=== PATIENT | female | born 1995 | race Caucasian/White ===

== ENCOUNTER 2023-05-21 06:35 | Emergency (ER) | payer BC, SELFPAY ==
[2023-05-21 06:45] VITALS: BP 119/73; PULSE 102; RESP 16; TEMP 36.3; O2SAT 100; BMI 22.6
--- NOTE | 2023-05-21 06:56 | ED.GENADULT ---
HPI - General Adult General Chief complaint: Nausea/Vomiting Stated complaint: flu symptoms Time Seen by Provider: 05/21/23 06:55 History of Present Illness HPI narrative: nausea, vomiting, diarrhea since yesterday. took one Zofran at home, did not help. not able to keep fluids down. 28-year-old young woman presenting to the emergency department complaint of vomiting and not being able to keep anything down. This started yesterday. Had a Zofran at home but ended up vomiting that up to. Just a yellowish green vomitus anymore. Has felt chilled and diaphoretic but usually this is preceding episode of vomiting. Does have some abdominal pain also preceding vomiting or diarrhea and then settles. No hematochezia no hematemesis no melena noted. No rashes. No noted exposures. Says she gets something like this usually once a year. No dysuria or for frequency or urgency in fact less urine out. She is terribly thirsty. Did try drinking water which came right back up as well as some Sprite. Related Data Home Medications Medication Instructions Recorded Confirmed lorazepam 0.5 mg tablet 0.5 mg PO Q6H PRN vertigo 05/21/23 05/21/23 ondansetron 4 mg disintegrating 4 mg PO Q8H PRN nausea/vomiting 05/21/23 05/21/23 tablet Allergies Allergy/AdvReac Type Severity Reaction Status Date / Time nitrofurantoin Allergy Intermediate Verified 05/21/23 06:49 [From Macrobid] Penicillins Allergy Intermediate Verified 05/21/23 06:49 Review of Systems Status of ROS: Reports: 6 or more systems reviewed and unremarkable except as noted in History and below [facility] Social History Smoking Status: Never smoker How often do you have a drink containing alcohol: never AUDIT-C Alcohol total score: 0 Non-prescribed substance use: denies use Exam Narrative: Exam Narrative: Pleasant. Seems uncomfortable. Holding an emesis bag. Sounds a little congested the nasopharynx not inconsistent with vomiting. Oropharynx is moist without erythema. Neck looks to be supple. Lungs are clear. Heart is in an elevated rate and regular rhythm. Abdomen is soft and diffusely mildly tender. Extremities are well perfused without edema. Skin is warm and dry no rash apparent. Face looks flushed. Const: Vital Signs, click to edit/add: Vital Signs - 24 hr 05/21/23 06:45 Temperature 97.4 F L Pulse Rate [Left P ulse Oximeter] 102 H Respiratory Rate 16 Blood Pressure [Ri ght Upper Arm] 119/73 Pulse Oximetry 100 Oxygen Delivery Me thod Room Air Documenting provider has reviewed patient's vital signs: yes Course Vital Signs Vital signs: Initial Vital Signs Temperature 97.4 F L 05/21/23 06:45 Temperature Source Temporal Artery Scan 05/21/23 06:45 Pulse Rate 102 H 05/21/23 06:45 Pulse Rhythm Regular 05/21/23 06:45 Respiratory Rate 16 05/21/23 06:45 Blood Pressure 119/73 05/21/23 06:45 Blood Pressure Mean 88 05/21/23 06:45 Blood Pressure Position Sitting 05/21/23 06:45 Pulse Oximetry 100 05/21/23 06:45 Oxygen Delivery Method Room Air 05/21/23 06:45 Vital Signs Temperature 97.4 F L 05/21/23 06:45 Pulse Rate 102 H 05/21/23 06:45 Respiratory Rate 16 05/21/23 06:45 Blood Pressure 119/73 05/21/23 06:45 Pulse Oximetry 100 05/21/23 06:45 Oxygen Delivery Method Room Air 05/21/23 06:45 Temperature 97.4 F L 05/21/23 06:45 Pulse Rate 102 H 05/21/23 06:45 Respiratory Rate 16 05/21/23 06:45 Blood Pressure 119/73 05/21/23 06:45 Pulse Oximetry 100 05/21/23 06:45 Oxygen Delivery Method Room Air 05/21/23 06:45 Medications Administered Medications: Generic Name Dose Route Start Last Admin Trade Name Freq PRN Reason Stop Dose Admin Sodium Chloride 1,000 mls @ 1,000 mls/hr 05/21/23 07:10 05/21/23 08:02 0.9 % Sodium Chloride 1000 Ml IV 05/21/23 08:09 1,000 mls/hr .Q1H ONE Administration Discontinued Medications Generic Name Dose Route Start Last Admin Trade Name Freq PRN Reason Stop Dose Admin Ondansetron HCl 4 mg 05/21/23 07:10 05/21/23 08:02 Ondansetron 2 Mg/Ml Inj IVP 05/21/23 07:11 4 mg ONCE ONE Administration Medical Decision Making MDM Narrative Medical decision making narrative: Sounds like will benefit from some IV fluids. Given community prevalence and lack of localizing symptoms on abdominal exam suspect more of viral etiology gastroenteritis. Will look for COVID, influenza. She suspects norovirus last year. Will collect labs looking for red flags or reason to pursue evaluation further, or if electrolyte replacement is necessary. Starting with normal saline and Zofran. Anticipating need for another L of fluids will follow with LR. Raghu avila Will be signing out at change of shift follow-up any significant lab abnormalities. Does have Zofran available at home. See patient discharge plan Lab Data Lab results reviewed: Yes I reviewed the patient's lab results Labs: Lab Results 05/21/23 Range/Units 06:50 SARS-CoV-2 (PCR) Negative SARS-CoV-2 (Negative) Influenza Type A (PCR) Negative PCR FLU A (Negative) Influenza Type B (PCR) Negative PCR FLU B (Negative) RSV (PCR) Negative PCR RSV (Negative) Discharge Plan Discharge Clinical Impression: Acute dehydration, Gastroenteritis Patient Disposition: Home w/ Parent or Adult Condition: Improved Additional Instructions: Focus on hydration. Slow advance of diet over the next 24-36 hours. Diluted juices, soup broths, crackers, rice, toast. Might need to stay head of this with some of that Zofran that you have. Be seen for return of intractable vomiting or diarrhea, marked increase in persistent abdominal pain, shortness of breath, associated fever. As long as no fever and do not see blood in your stool, if needed could probably take loperamide for diarrhea. Prescriptions: No Action lorazepam 0.5 mg tablet 0.5 mg PO Q6H PRN (Reason: vertigo) ondansetron 4 mg tablet,disintegrating 4 mg PO Q8H PRN (Reason: nausea/vomiting) Follow Up/Referrals: Provider,Not a Local [Primary Care Provider] - Stand Alone Forms: [employer] Info Instructions
[2023-05-21 07:35] LABS: PCR FLU A Negative PCR FLU A (Negative); PCR FLU B Negative PCR FLU B (Negative); PCR RSV Negative PCR RSV (Negative); SARS PCR* Negative SARS-CoV-2 (Negative)
[2023-05-21] MEDS: 0.9 % SODIUM CHLORIDE 1000 ml 1,000 ML IV (08:02)
[2023-05-21] MEDS: ONDANSETRON 2 MG/ML inj 4 MG IVP (08:02)
[2023-05-21 08:10] LABS: Basophils Absolute Auto 0.02 K/uL (0.00-0.30); Basophils Percent Auto 0.2 % (0.0-3.0); Hematocrit 39.4 % (33.0-51.0); Immature Granulocytes Abs Auto 0.01 K/uL (0.00-0.30); Immature Granulocytes Pct Auto 0.1 %; Lymphocytes Percent Auto 3.4 % (20-44); Mean Corpuscular HGB Conc 33 gm/dL (32-36); Mean Corpuscular Hemoglobin 30 pg (26-34); Mean Corpuscular Volume 89 fL (80-100); Monocytes Percent Auto 3.5 % (0.0-11.0); Neutrophils Percent Auto 92.8 % (42.0-72.0); Platelet Count* 228 K/uL (140-440); RDW Coefficient of Variation % 12.3 % (11.5-15.5); Red Blood Count 4.41 m/uL (4.00-5.20); White Blood Count* 8.85 K/uL (4.50-11.00)
[2023-05-21 08:13] LABS: Slide Review Reflex No
[2023-05-21 08:27] LABS: Chloride* 109 mmol/L (96-114)
[2023-05-21 08:28] LABS: Albumin* 4.8 g/dL (3.3-5.0); Sodium* 141 mmol/L (135-149)
[2023-05-21 08:29] LABS: Potassium* 3.8 mmol/L (3.6-5.1)
[2023-05-21 08:30] LABS: Creatinine* 0.5 mg/dL (0.5-1.5); Est. Creatinine Clearance* 155.42
[2023-05-21 08:31] LABS: Alanine Aminotransferase* 24 U/L (4-35); Alkaline Phosphatase* 50 U/L (40-150); Anion Gap 11 mEq/L (7-15); Aspartate Amino Transferase* 23 U/L (12-35); Bilirubin Direct* 0.1 mg/dL (0.0-0.5); Bilirubin Total* 0.9 mg/dL (0.1-1.5); Blood Urea Nitrogen* 14 mg/dL (5-24); Carbon Dioxide* 21 mmol/L (20-32); Estimated Glomerular Filt Rate 130 ml/min; Total Protein* 7.8 g/dL (6.0-8.3)
[2023-05-21 08:32] LABS: Calcium* 8.8 mg/dL (8.4-10.6); Glucose* 114 mg/dL (60-115); Magnesium* 1.9 mg/dL (1.5-2.6)
[2023-05-21 08:34] LABS: C Reactive Protein* 1.2 mg/dL (0.5-1.0)
[2023-05-21] MEDS: LACTATED RINGERS 1000 ML 1,000 ML IV (09:01)
== END 2023-05-21 10:15 | disposition home or self-care (01) ==
PROVIDERS: Emergency Provider Family Medicine
DX: K52.9 Noninfective gastroenteritis and colitis, unspecified (principal); E86.0 Dehydration
CPT/HCPCS: 36415; 80048; 80076; 83735; 85025; 86140; 87631; 96361; 96374; 99284; J2405; J7030; J7120

== ENCOUNTER 2023-07-03 11:25 | Outpatient (CLI) | payer BC, SELFPAY | END 2023-07-03 11:26 | disposition home or self-care (01) | LOC: NFLDREF 07-15 20:18 | PROVIDERS: Visit Provider Physician Assistant | DX: R30.0 Dysuria (principal); N89.8 Other specified noninflammatory disorders of vagina; B37.31 Acute candidiasis of vulva and vagina | CPT/HCPCS: 87086 ==

== ENCOUNTER 2023-07-05 11:12 | Outpatient (CLI) | payer BC, SELFPAY | END 2023-07-05 11:13 | disposition home or self-care (01) | PROVIDERS: Visit Provider Physician Assistant | DX: R30.0 Dysuria (principal) | CPT/HCPCS: 87086 ==